=== PATIENT | male | born 1990 | race Caucasian/White ===

== ENCOUNTER 2019-05-14 20:33 | Emergency (ER) | payer OTHER ==
[~2019-05-14] VITALS: Ht 185.4 cm; Wt 91.3 kg
[2019-05-14 20:33] VITALS: BP 154/88
[2019-05-14] MEDS ORDERED: IBUPROFEN 800 MG TAB PO ONE (21:15)
[2019-05-14] MEDS ORDERED: IBUP80TA PO (21:18)
--- NOTE | 2019-05-15 09:22 | REP ---
LEFT SHOULDER, COMPLETE: 05/14/2019. Clinical history: Trauma, shoulder pain. Findings: No prior studies. Three view show a grade 2 AC joint separation with elevation of the clavicle in relationship to the acromion. No clavicular or acromial fracture noted. Ribs, scapula and humerus without fracture. No abnormal soft-tissue calcification. No subluxation of the glenohumeral joint. Impression: 1. Grade 2 AC joint separation without visible fracture. Electronically Signed by Simon Guzman MD 05/15/2019 07:51 P
== END 2019-05-14 21:21 | disposition home or self-care (01) ==
LOC: M ED 20:33
DX: S43.102A Unspecified dislocation of left acromioclavicular joint, initial encounter (principal); W19.XXXA Unspecified fall, initial encounter; Y92.9 Unspecified place or not applicable; Y93.23 Activity, snow (alpine) (downhill) skiing, snowboarding, sledding, tobogganing and snow tubing; F17.200 Nicotine dependence, unspecified, uncomplicated; Z90.89 Acquired absence of other organs; Z86.018 Personal history of other benign neoplasm; Z88.2 Allergy status to sulfonamides

== ENCOUNTER → 2019-07-08 | Outpatient (REF) | payer OTHER ==
[~2019-07-08] MED LIST: IBUP80TA PO
[2019-07-08 13:11] LABS: SEMEN APPEARANCE OPAQUE (OPAQUE); SEMEN VISCOSITY LIQUID (LIQUID); SEMEN VOLUME 1.5 ml (2.0-5.0); SPERM CONCENTRATION 28.6 M/ml (>=15.0); WBC CONCENTRATION >1 M/ml (<=1 M/ml)
== END ==
LOC: M LAB REF 12:22
PROVIDERS: ATTEND Specialist
DX: N46.9 Male infertility, unspecified (principal)